=== PATIENT | male | born 1990 | race Two or more races ===

== ENCOUNTER 2023-09-17 20:13 | Emergency (ER) | payer OTHER ==
[~2023-09-17] VITALS: Ht 170.2 cm; Wt 104.3 kg
[2023-09-17 21:00] LABS: HEMATOCRIT 48.3 % (39.0-48.0); HEMOGLOBIN 16.9 g/dL (13-16.00); MEAN CELL VOLUME 87.7 fL (80.0-100.00); MEAN CORPUSCULAR HEMOGLOBIN 30.6 pg (27.00-32.0); MEAN CORPUSCULAR HGB CONC 34.9 g/dl (32.0-36.0); PLATELET COUNT 223 K/uL (150-450); RED BLOOD COUNT 5.51 M/uL (4.00-6.00); RED CELL DISTRIBUTION WIDTH 13.1 % (11.5-14.5)
[2023-09-17 21:23] LABS: CALCIUM 9.4 mg/dL (8.5-10.1); CREATININE SERUM 1.08 mg/dL (0.70-1.30); GFR 78.74; POTASSIUM 4.06 mEq/L (3.5-5.1)
== END 2023-09-18 03:52 | disposition home or self-care (01) ==
LOC: ER 20:13
PROVIDERS: Emergency Medicine
DX: I10 Essential (primary) hypertension (principal)

== ENCOUNTER 2023-09-21 22:15 | Emergency (ER) | payer OTHER ==
[~2023-09-21] VITALS: Ht 170.2 cm; Wt 104.3 kg
[2023-09-21] MEDS ORDERED: LISINOPRIL-HCT1 EAC2 PO (22:30)
[2023-09-22 01:17] LABS: HEMATOCRIT 47.3 % (39.0-48.0); HEMOGLOBIN 16.4 g/dL (13-16.00); MEAN CELL VOLUME 88.6 fL (80.0-100.00); MEAN CORPUSCULAR HEMOGLOBIN 30.8 pg (27.00-32.0); MEAN CORPUSCULAR HGB CONC 34.7 g/dl (32.0-36.0); PLATELET COUNT 214 K/uL (150-450); RED BLOOD COUNT 5.34 M/uL (4.00-6.00); RED CELL DISTRIBUTION WIDTH 13.2 % (11.5-14.5)
[2023-09-22 01:33] LABS: BILIRUBIN TOTAL 0.78 mg/dL (0.3-1.2); CALCIUM 9.4 mg/dL (8.5-10.1); CREATININE SERUM 0.71 mg/dL (0.70-1.30); GFR 127.77; GLOBULINA 3.9 G/DL (2.4-3.5); POTASSIUM 4.17 mEq/L (3.5-5.1); TOTAL PROTEIN 7.9 gm/dL (6.4-8.2)
[2023-09-22] MEDS ORDERED: LOSARTAN-HCTZ1 EAC1 PO (04:39)
== END 2023-09-22 04:57 | disposition home or self-care (01) ==
LOC: ER 22:16
PROVIDERS: General Practice
DX: I16.9 Hypertensive crisis, unspecified (principal)